=== PATIENT | female | born 1940 | race Caucasian/White ===

== ENCOUNTER → 2017-10-13 | Outpatient (CLI) | payer MEDICARE ==
[~2017-10-13] MED LIST: /WARF25TA OR; ACET500C OR; ACET65TA OR; BUSP5TA PO; CALCCHW12 OR; CARDIA OR; FOLI1TAB4 PO; FOSAMAX PO; FURO20TA PO; GLUC500T3 OR; LOSA100T36 PO; LOVA40TA PO; MULTIVIT OR; MULTIVITAMIN PO; OMEP20TA7 OR; PROP225T PO; TRAM50TA2 OR; TYLE325T5 PO; ULTR50TA PO; VIT D 2000 OR; WARF05TA PO; [UNRECOGNIZED DRUG - OTHER] PO; calcium PO; cartia xt OR; diavan OR; diovan OR; lasix OR; livalo OR; metoprolol PO; neurontin OR; prilosec OR; sucralfate OR
--- NOTE | 2017-10-13 15:56 | REPMRS ---
Patient History The patient states she had a clinical breast exam in 10/19 Patient is postmenopausal, has history of colorectal cancer at age 66, and has history of melanoma. Family history of breast cancer in mother at age 50 or over and ovarian cancer in maternal cousin at age 50 or over. Benign excisional biopsy. Digital Woman Screen Mammo: October 13, 2017 - Exam #: [id number] Bilateral CC and MLO view(s) were taken. Technologist: Rona Burger, Technologist Prior study comparison: April 26, 2016, digital woman screen mammo performed at [facility]. April 27, 2015, digital woman screen mammo performed at [facility] to [facility]. FINDINGS: There are scattered fibroglandular densities. There has been no change in the appearance of the mammogram from the prior studies. There is a mild amount of residual fibroglandular tissue which is fairly symmetric. There is no interval development of dominant mass, architectural distortion, or clustered microcalcification suggestive of malignancy. ASSESSMENT: BI-RADS/ACR category 1 mammogram. Negative. Recommendation Routine screening mammogram in 1 year (for women over age 40). This mammogram was interpreted with the aid of an FDA-approved computer-aided dectection system. Electronically Signed By: Luis Winslow MD 10/13/17 1759
== END ==
LOC: M WHC 14:05
PROVIDERS: ATTEND Nurse Practitioner Family
DX: Z12.31 Encounter for screening mammogram for malignant neoplasm of breast (principal); Z78.0 Asymptomatic menopausal state; Z85.038 Personal history of other malignant neoplasm of large intestine; Z80.3 Family history of malignant neoplasm of breast; Z92.89 Personal history of other medical treatment

== ENCOUNTER → 2018-06-04 | Outpatient (CLI) | payer MEDICARE | LOC: M WHC 10:40 | DX: M81.0 Age-related osteoporosis without current pathological fracture (principal) | CPT/HCPCS: 77080 ==

== ENCOUNTER → 2018-10-16 | Outpatient (CLI) | payer MEDICARE ==
[~2018-10-16] MED LIST changes: +FOLI1TAB11 PO; -FOLI1TAB4 PO; -LOSA100T36 PO; +LOSA100T50 PO
--- NOTE | 2018-10-16 11:09 | REPMRS ---
Patient History The patient states she had a clinical breast exam in 10/2018. Patient is postmenopausal, has history of colorectal cancer at age 66, and has history of melanoma skin cancer. Family history of breast cancer at age 50 or over in mother, ovarian cancer at age 50 or over in maternal cousin, prostate cancer in maternal uncle, prostate cancer in maternal cousin. Benign excisional biopsy. No Hormone Replacement Therapy 3D TOMOSYNTHESIS WAS PERFORMED. Digital Woman Screen Mammo: October 16, 2018 - Exam #: [id number] Bilateral CC and MLO view(s) were taken. Technologist: Ambar Garg, Technologist Prior study comparison: October 13, 2017, digital woman screen mammo performed at [facility]. April 26, 2016, digital woman screen mammo performed at [facility]. FINDINGS: The breast tissue is heterogeneously dense. This may lower the sensitivity of mammography. There has been no change in the appearance of the mammogram from the prior studies. There is a moderate amount of residual fibroglandular tissue which is fairly symmetric. There is no interval development of dominant mass, areas of architectural distortion, or clustered microcalcification typical of malignancy. Assessment: BI-RADS/ACR category 1 mammogram. Negative. Recommendation Routine screening mammogram in 1 year (for women over age 40). This mammogram was interpreted with the aid of an FDA-approved computer-aided dectection system. Electronically Signed By: Luis Winslow MD 10/16/18 [id number]
== END ==
LOC: M WHC 09:14
PROVIDERS: ATTEND Nurse Practitioner Family
DX: Z01.419 Encounter for gynecological examination (general) (routine) without abnormal findings (principal); Z12.31 Encounter for screening mammogram for malignant neoplasm of breast; Z78.0 Asymptomatic menopausal state; Z85.038 Personal history of other malignant neoplasm of large intestine; Z85.820 Personal history of malignant melanoma of skin; Z80.3 Family history of malignant neoplasm of breast; Z86.018 Personal history of other benign neoplasm; N81.10 Cystocele, unspecified; M81.0 Age-related osteoporosis without current pathological fracture; Z92.29 Personal history of other drug therapy
CPT/HCPCS: 77063; 77067; 96372; G0101; J0897

== ENCOUNTER → 2019-10-18 | Outpatient (CLI) | payer MEDICARE ==
[~2019-10-18] MED LIST changes: -/WARF25TA OR; +COUM1TAB18 OR
--- NOTE | 2019-10-18 11:09 | REPMRS ---
Patient History The patient states she had a clinical breast exam in October 2019.Family history of breast cancer at age 50 or over in mother, ovarian cancer at age 50 or over in maternal cousin, prostate cancer in maternal uncle, prostate cancer in maternal cousin. Benign excisional biopsy. No Hormone Replacement Therapy Digital Woman Screen Mammo: October 18, 2019 - Exam #: [id number] Bilateral CC and MLO view(s) were taken. Technologist: Yuli Hammonds, Technologist Prior study comparison: October 16, 2018, bilateral digital woman screen mammo performed at [facility]. October 13, 2017, digital woman screen mammo performed at [facility]. April 26, 2016, digital woman screen mammo performed at [facility]. FINDINGS: There are scattered fibroglandular densities. There has been no change in the appearance of the mammogram from the prior studies. There is a mild amount of scattered fibroglandular density which is fairly symmetric. There is no interval development of dominant mass, architectural distortion, or grouped microcalcification suggestive of malignancy. 3-D tomosynthesis shows no additional findings. Assessment: BI-RADS/ACR category 1 mammogram. Negative Mammogram. Recommendation Routine screening mammogram of both breasts in 1 year (for women over age 40). This patient's Lifetime Breast Cancer Risk is estimated at 5.9 %. This mammogram was interpreted with the aid of an FDA-approved computer-aided dectection system. Electronically Signed By: Jey Fragoso MD 10/18/19 [id number]
== END ==
LOC: M WHC 09:18
PROVIDERS: ATTEND Nurse Practitioner Family
DX: Z12.31 Encounter for screening mammogram for malignant neoplasm of breast (principal); Z80.3 Family history of malignant neoplasm of breast; Z86.018 Personal history of other benign neoplasm; M81.0 Age-related osteoporosis without current pathological fracture
CPT/HCPCS: 77063; 77067; 96372; G0463; J0897

== ENCOUNTER → 2019-11-13 | Outpatient (REF) | payer MEDICARE | LOC: M LAB REF 20:45 | PROVIDERS: ATTEND Physician Assistant Medical | DX: R50.9 Fever, unspecified (principal) ==

== ENCOUNTER → 2020-04-18 | Outpatient (CLI) | payer MEDICARE ==
[2020-04-18 11:38] LABS: BASO % 0.5 % (0.0-1.0); EOS # 0.2 10^3/uL (0.0-0.5); EOS % 4.6 % (0.0-3.0); HEMATOCRIT 39.6 % (36.0-47.0); HEMOGLOBIN 12.5 g/dl (12.0-15.5); LYMPH # 1.6 10^3/uL (1.5-5.0); LYMPH % 38.9 % (24.0-44.0); MEAN CORPUSCULAR HEMOGLOBIN 29.6 pg (27.0-33.0); MEAN CORPUSCULAR HGB CONC 31.6 g/dl (32.0-36.5); MEAN CORPUSCULAR VOLUME 93.8 fl (80.0-96.0); MONO # 0.3 10^3/uL (0.0-0.8); MONO % 7.1 % (0.0-5.0); NEUTROPHILS % 48.7 % (36.0-66.0); PLATELET COUNT, AUTOMATED 145 10^3/uL (150-450); RED BLOOD COUNT 4.22 10^6/uL (4.00-5.40); WHITE BLOOD COUNT 4.1 10^3/uL (4.0-10.0)
[2020-04-18 12:08] LABS: ERYTHROCYTE SEDIMENTATION RATE 37 mm/hr (0-30)
[2020-04-18 13:00] LABS: ALBUMIN 3.8 GM/DL (3.2-5.2); ALT/SGPT 25 U/L (12-78); C REACTIVE PROTEIN QUANTITATIV 0.77 MG/DL (0.00-0.30); CREATININE FOR GFR 0.74 MG/DL (0.55-1.30); GLOMERULAR FILTRATION RATE > 60.0 (>39)
== END ==
LOC: M PLALAB 09:29
PROVIDERS: ATTEND Internal Medicine Rheumatology
DX: M15.4 Erosive (osteo)arthritis (principal); M81.0 Age-related osteoporosis without current pathological fracture; Z79.899 Other long term (current) drug therapy
CPT/HCPCS: 36415; 82040; 82565; 84450; 84460; 85027; 85652; 86140; 96372; J0897

== ENCOUNTER → 2020-11-30 | Outpatient (CLI) | payer MEDICARE ==
--- NOTE | 2020-11-30 12:14 | REPMRS ---
Patient History The patient states she had a clinical breast exam in 2020. Family history of breast cancer at age 50 or over in mother, ovarian cancer at age 50 or over in maternal cousin, prostate cancer in maternal uncle, prostate cancer in maternal cousin. Benign excisional biopsy. No Hormone Replacement Therapy Digital Woman Screen Mammo: November 30, 2020 - Exam #: [id number] Bilateral CC and MLO view(s) were taken. Technologist: Matilda Mullins, Technologist Prior study comparison: October 18, 2019, bilateral digital woman screen mammo performed at [facility]. October 16, 2018, bilateral digital woman screen mammo performed at [facility]. October 13, 2017, digital woman screen mammo performed at [facility]. FINDINGS: There are scattered fibroglandular densities. The Volpara volumetric breast density category is:B. There is a new spiculated appearing density in the left superior and medial mid breast which merits further evaluation. There has been no other change in the appearance of the mammogram from the prior studies. There is a mild amount of scattered fibroglandular density which is fairly symmetric. There is no other interval development of dominant mass, architectural distortion, or grouped microcalcification suggestive of malignancy. 3-D tomosynthesis shows no additional findings. Assessment: BI-RADS/ACR category 0 mammogram, Incomplete: Need additional imaging evaluation and/or prior mammograms for comparison. Recommendation Ultrasound and special view mammogram of the left breast. This patient's [facility] Lifetime Breast Cancer Risk is estimated at 5.2 %. This mammogram was interpreted with the aid of an FDA-approved computer-aided dectection system. Electronically Signed By: Jey Fragoso MD 11/30/20 [id number]
--- NOTE | 2020-11-30 12:46 | DEXAMM ---
INDICATION: M81.0 AGE REL OSTEOPOROSIS W/O FX. COMPARISON: There are multiple prior studies the most recent which is from June 04, 2018. The most remote prior study is from 26 August 2002. TECHNIQUE: Bone density was measured using dual-energy x-ray absorptionmetry (DEXA). FINDINGS: AP SPINE L1-L4 BMD 1.207 g/cm2 Young Adult T-Score -0.1 Age Matched Z-Score 1.7. LT FEMUR, TOTAL BMD 0.888 g/cm2 Young Adult T-Score -0.9 Age Matched Z-Score 1.0. LT NECK BMD 0.842 g/cm2 Young Adult T-Score -1.4 Age Matched Z-Score 0.7. RT FEMUR, TOTAL BMD 0.947 g/cm2 Young Adult T-Score -0.5 Age Matched Z-Score 1.4. RT NECK BMD 0.733 g/cm2 Young Adult T-Score -2.2 Age Matched Z-Score -0.1. IMPRESSION: There is normal bone density of the spine. There is low bone density of the left hip. There is low bone density of the right hip. The density of the spine has increased 30.6% since the initial exam on August 26, 2002. The density of the spine increased 6.6% since most recent exam on June 04, 2018. The density of the left hip has decreased 0.8% since initial exam on August 26, 2002. The density of the left hip has increased 0.8% since most recent exam on June 04, 2018. The density of the right hip has increased 5.0% since the initial exam on August 26, 2002. The density of the right hip has increased 1.7% since the most recent exam on June 04, 2018. FOLLOW-UP: Recommendation for the next bone density exam: 2 years. <Electronically signed by Jey Fragoso > 11/30/20 [id number]
== END ==
LOC: M WHC 10:31
PROVIDERS: ATTEND Nurse Practitioner Family
DX: Z01.419 Encounter for gynecological examination (general) (routine) without abnormal findings (principal); Z12.31 Encounter for screening mammogram for malignant neoplasm of breast; M81.0 Age-related osteoporosis without current pathological fracture; Z80.3 Family history of malignant neoplasm of breast; Z86.018 Personal history of other benign neoplasm; N63.25 Unspecified lump in the left breast, overlapping quadrants
CPT/HCPCS: 13132; 17311; 77063; 77067; 77080; 96372; G0101; J0897

== ENCOUNTER → 2020-12-08 | Outpatient (CLI) | payer MEDICARE ==
--- NOTE | 2020-12-08 12:32 | REP ---
INDICATION: ADDITIONAL VIEWS LT BREAST. Recent screening mammography was BI-RADS category 0 ft because of a possible spiculated area in the left breast. Diagnostic imaging was recommended. COMPARISON: Comparison mammography 30 November 2020, 18 October 2019, and 16 October 2018. TECHNIQUE: Magnified focal spot-compression CC, mL, and MLO views of the left breast is are obtained. Targeted left breast sonography is carried out. This mammogram was interpreted with the aid of an FDA-approved computer-aided detection system. FINDINGS: Diagnostic mammographic images confirm the presence of a 7 mm spiculated nodule in the superomedial quadrant of the left breast middle 3rd. Scattered fibroglandular elements are seen along with some vascular calcification. No other suspicious mammographic finding. Targeted sonography imaging of the left breast demonstrates a hypoechoic irregularly shaped 5 x 5 x 4 mm nodule with slightly irregular margins at the 11 o'clock position, 6 cm from the nipple. This is felt to correspond with the mammographic density. On some images, it appears taller than wide and displays acoustic shadowing. It is considered suspicious sonographically as well as mammographically.. : IMPRESSION: BIRADS/ACR category 4 suspicious left breast mammographic and sonographic findings. Histologic sampling is recommended. This patient's Tyrer-Cuzick lifetime breast cancer risk assessment score is 5.2%. RECOMMENDATION: Ultrasound-guided needle biopsy left breast lesion with marker clip placement and post clip placement left breast mammography recommended.. The patient letter being requested is M4. <Electronically signed by Jey Fragoso > 12/08/20 [id number]
== END ==
LOC: M WHC 09:32
PROVIDERS: ATTEND Nurse Practitioner Family
DX: Z12.31 Encounter for screening mammogram for malignant neoplasm of breast (principal); N63.21 Unspecified lump in the left breast, upper outer quadrant

== ENCOUNTER → 2020-12-18 | Outpatient (CLI) | payer MEDICARE | LOC: M PLALAB 13:30 | PROVIDERS: ATTEND Surgery | DX: Z13.79 Encounter for other screening for genetic and chromosomal anomalies (principal); Z85.828 Personal history of other malignant neoplasm of skin ==

== ENCOUNTER → 2020-12-27 | Outpatient (CLI) | payer MEDICARE ==
[~2020-12-27] MED LIST changes: +ELIQ2.5T PO; +LOTR5CAP2 PO; +PLAQ200T4 PO; +PROL60SO SC
[2020-12-27 11:01] VITALS: BP 130/78
--- NOTE | 2020-12-27 13:13 | REP ---
INDICATION: R92.8 ABN LT MAMMO, POST US GUIDED BIOPSY. COMPARISON: Comparison left breast mammography 30 November 2020 and 08 December 2020. TECHNIQUE: Craniocaudal and mediolateral views of the left breast are obtained post biopsy. This mammogram was interpreted with the aid of an FDA-approved computer-aided detection system. FINDINGS: Scattered fibroglandular elements are seen. The needle biopsy marker clip is seen in the superomedial aspect the left breast where previous mammography showed a spiculated lesion. Post biopsy skin edema obscures the lesion but the marker clip is in good position. . : IMPRESSION: Needle biopsy marker clip in good position where prior mammography showed the spiculated lesion in the superomedial left breast.. RECOMMENDATION: Pending biopsy result.. <Electronically signed by Jey Fragoso > 12/27/20 [id number]
--- NOTE | 2020-12-27 13:15 | REP ---
INDICATION: R92.8 ABN LT MAMMO,US GUIDED BIOPSY. COMPARISON: Comparison sonography December 08, 2020.. TECHNIQUE: Sonographic guidance. FINDINGS: Sonographic guidance is provided to Dr. Gale who performed ultrasound-guided needle biopsy procedure left breast lesion with marker clip placement. IMPRESSION: Ultrasound guidance. <Electronically signed by Jey Fragoso > 12/27/20 0194
--- NOTE | 2020-12-30 15:07 | ROOPDOC ---
[facility] Report Of Operation Report of Operation DATE OF PROCEDURE: 12/27/20 DIAGNOSIS: left breast suspicious lesion PROCEDURE: Ultrasound guided biopsy of left breast suspicious lesion with clip placement SURGEON: Benjamin Mathis BLOOD LOSS: minimal COMPLICATIONS: none Lidocaine 1% LOT [id number] Expiration 02/2024 Sodium Bicarbonate 4% LOT [id number] Expiration 02/2021 Hydromark clip LOT [id number] Expiration 08/2023 SHAPE: 3 Bx device: BARD [id number] x10 cm LOT [id number] Expiration 09/2023 Informed consent was obtained. The most common risk and possible complications including bleeding, hematoma, bruising, infection, injury to surrounding structures were explained to the patient and the patient expressed understanding. Patient was placed on the bed in the supine position. Appropriate time out was done stating patients name, date of , and the procedure to be performed. The left breast was prepped and draped in the usual fashion. The ultrasound was used to confirm the location of the lesion in the left breast at 11:00 5 centimeters from the nipple. Plain Lidocaine 1% and 4% sodium bicarbonate 10:2 mix was used to anesthetize the skin, the biopsy site and tissues along the anticipated biopsy tract. Small skin incision was made with blade number 11. BARD Marquee 14G cannula with introducer ([id number]) was inserted through the incision and advanced under the ultrasound guidance to position immediately adjacent to the lesion. Next, the introducer was removed and BARD Marquee 14G biopsy device was places in the cannula. Pre-biopsy imaging, and post-biopsy imaging were captured. Five good core biopsies were taken at various levels of the lesion. Specimen was placed in formaldehyde, labeled with appropriate biopsy site and patients name, and sent to pathology for evaluation. Next, the biopsy device was withdrawn and a clip introducer was inserted into the biopsy site via the cannula. The SHAPE 3 Hydromark clip was deployed under sonographic guidance. Post-clip placement image was captured. Manual pressure over the biopsy cavity and tract was held after the clip introducer was withdrawn. No bleeding was noted upon removal of the pressure. Post-biopsy mammogram of the left breast was obtained and showed clip in expected position. Postprocedural dressing was placed. Patient tolerated procedure well. Discharge instructions were discussed with the patient and the patient expressed understanding. BENJAMIN MATHISb 27, 2021 15:07
== END ==
LOC: M WHCPRO 09:43
PROVIDERS: ATTEND Surgery
DX: C50.912 Malignant neoplasm of unspecified site of left female breast (principal)

== ENCOUNTER → 2021-01-03 | Outpatient (REF) | payer MEDICARE ==
[2021-01-03 16:08] LABS: BLOOD UREA NITROGEN 12 MG/DL (7-18); CALCIUM LEVEL 9.7 MG/DL (8.8-10.2); CARBON DIOXIDE LEVEL 26 MEQ/L (21-32); CHLORIDE LEVEL 113 MEQ/L (98-107); CREATININE FOR GFR 0.83 MG/DL (0.55-1.30); GLOMERULAR FILTRATION RATE > 60.0 (>39); GLUCOSE, FASTING 98 MG/DL (70-100); POTASSIUM SERUM 4.2 MEQ/L (3.5-5.1); SODIUM LEVEL 143 MEQ/L (136-145)
== END ==
LOC: M PLALAB 14:03
PROVIDERS: ATTEND Surgery
DX: C50.912 Malignant neoplasm of unspecified site of left female breast (principal)

== ENCOUNTER → 2021-01-05 | Outpatient (CLI) | payer MEDICARE ==
[~2021-01-05] MED LIST changes: +PROHANCE 279.3MG/ML 15ML VIAL As Ordered ONE
--- NOTE | 2021-01-08 09:02 | REP ---
INDICATION: IDC LEFT BREAST. COMPARISON: Comparison screening mammography 30 November 2020, diagnostic mammography and targeted ultrasound December 08, 2020, ultrasound-guided needle biopsy images of the left breast from 07 December 2020 as well as marker clip placement mammography 27 December 2020. TECHNIQUE: Three Kathya MRI imaging was performed with a dedicated breast coil. Axial, coronal, and sagittal T1 and T2 weighted scans were obtained with and without fat saturation in the usual fashion. The study includes dynamically acquired post gadolinium-enhanced imaging with image subtraction. Maximum intensity projection and multi planar reformation imaging is included as well. This study is interpreted with the aid of TidyClubD, an FDA approved computer aided detection (CAD) software program, on a dedicated breast MRI workstation. The gadolinium enhancement dose is 15 mL of intravenous ProHance. FINDINGS: There is a mild to moderate amount of fibroglandular tissue bilaterally corresponding with the mammographic pattern. There is mild background parenchymal enhancement. There is no evidence of axillary lymphadenopathy or significant breast cystic change. High-resolution pre and post-contrast T1 and T2 weighted scans show a 7 mm spiculated area adjacent to the HydroMARK biopsy clip in the superomedial quadrant of the left breast corresponding to the biopsy-proven invasive ductal carcinoma. This demonstrates minimal enhancement and washout kinetics. There is no other suspicious abnormality in either breast. Dynamically acquired sequential postcontrast images show no other suspicious area of enhancement and washout.. IMPRESSION: BI-RADS category 6 known left breast malignancy. Marker clip immediately adjacent to the 7 mm spiculated lesion. No evidence of adenopathy or additional suspicious abnormality in either breast.. <Electronically signed by Jey Fragoso > 01/08/21 [id number]
== END ==
LOC: M RAD 14:29
PROVIDERS: ATTEND Surgery
DX: C50.912 Malignant neoplasm of unspecified site of left female breast (principal)
CPT/HCPCS: A9576; C8908

== ENCOUNTER → 2021-03-21 | Outpatient (CLI) | payer MEDICARE ==
[~2021-03-21] MED LIST changes: +COVI100V IM; -PROHANCE 279.3MG/ML 15ML VIAL As Ordered ONE
--- NOTE | 2021-03-21 14:11 | RADONC.CN ---
Radiation Oncology Hx/Consult Radiation Oncology Consult Date of Service: March 21, 2021 Pt Identifier Dipika Ni is a 80 year old female with screening mammogram detected left breast cancer pT1cN0(sn)M0 ER/AR+ HER2- grade 2. She is s/p lumpectomy and SLNB with Dr. Richardson on 03/02/21 and is seen today for consideration of adjuvant RT. Diagnosis/Treatment History Oncologic History 11/30/20 Mammogram with left superomedial abnormality 12/08/20 US with 12 o'clock lesion left breast 12/27/20 Biopsy showing IDC ER/AR+ HER2- Grade 2 01/05/21 MRI negative for regional disease 03/02/21 Lumpectomy and SLNB pT1cN0(sn)M0 margins negative Breast history: 1st @ 23 Menses @ 15 Menopause @ 52 No OCP No HRT/IVF Interval History Here with her son, has tenderness in the left breast, some bruising remaining. Some pain in the left axilla, not bothersome, not taking anything for this. Has no change in left arm diameter, has no impaired ROM. Is under treatment with hydroxychloroquine for 'joint condition'. Past Medical History: PAF Arthritis Colon cancer 2003 Melanoma Osteoporosis GERD Past Surgical History: Venral hernia repair Subtotal colectomy 2004 Mohs surgery for melanoma Rotator cuff repain TKA left and right Family History: Mother breast cancer Maternal cousin ovarian cancer Social History: Never smoker Never drinker Allergies / Meds Allergies: Coded Allergies: MS - Codeine (Verified Allergy, Unknown, HEADACHE,RASH, 02/08/13) MS - Celecoxib (Unverified Adverse Reaction, Unknown, SKIN FLUSHING, 02/08/13) MS - Sulfa Drugs (Unverified Adverse Reaction, Unknown, SKIN FLUSHING, 02/08/13) MS - Sulfa Drugs Cross Reactors (Unverified Adverse Reaction, Unknown, SKIN FLUSHING, 02/08/13) Home Meds Reported Medications Covid-19 Vacc,Mrna(Moderna)/Pf (Moderna Covid19 Vacc(Unapprov)) 100 Mcg/0.5 Ml Vial, 100 MCG IM, VIAL 03/21/21 Amlodipine Besylate/Benazepril (Lotrel 5-10 mg Capsule) 1 Each Capsule, 1 CAP PO DAILY for 30 Days, #30 CAP 12/27/20 Hydroxychloroquine Sulfate (Plaquenil) 200 Mg Tablet, 200 MG PO, TAB 12/27/20 Denosumab Injection (Prolia) 60 Mg/1 Ml Syringe, 1 SYRINGE SC ONCE for 1 Day, #1 ML 12/27/20 Apixaban (Eliquis) 2.5 Mg Tablet, 1 TAB PO BID for 30 Days, #60 TAB 12/27/20 Lovastatin (Lovastatin) 40 Mg Tab, 40 MG PO DAILY, TAB 08/21/16 Losartan Potassium (Losartan Potassium) 100 Mg Tab, 100 MG PO DAILY, TAB 08/21/16 Folic Acid (Folic Acid) 1 Mg Tab, 1 MG PO DAILY, TAB 08/21/16 Propafenone HCl (Propafenone HCl) 225 Mg Tab, 225 MG PO BID, TAB 08/21/16 Buspirone HCl (Buspirone HCl) 5 Mg Tab, 5 MG PO BID, #60 TAB 08/21/16 Acetaminophen (TYLENOL) 325 Mg Tab, 650 MG PO Q4HP PRN 07/16/12 Omeprazole (Omeprazole) 20 Mg Tab, 20 MG OR BID 07/01/12 Multivitamins (Multivitamin) 1 Tab Tab, 1 TAB OR DAILY 01/18/11 Review of Systems General: Reports: Normal Appetite Constitutional: Denies: Chills, Fever, Night Sweats Eyes: Denies: Pain, Vision change HEENT: Denies: Head Aches, Dysphagia, Sore Throat Skin: Denies: Rash, Lesions, Bruising Pulmonary: Denies: Dyspnea, Cough Cardiovascular: Denies: Chest Pain, Palpitations, Edema Breast: Reports: Breast Skin Changes (Bruising left); Denies: New Breast Lumps / Masses, Nipple Retraction, Nipple Discharge Gastrointestinal: Denies: Nausea, Vomiting, Abdominal Pain, Diarrhea Genitourinary: Denies: Dysuria, Frequency, Incontinence Hematologic: Denies: Bruising, Petecchia, Enlarged Lymph Nodes Musculoskeletal: Denies: Neck pain, Back pain Neurological: Denies: Weakness, Numbness, Incoordination Psych: Reports: Mood Normal; Denies: Memory Issues, Thoughts of Self Harm Vital Signs Ht 61" Wt 183 lbs BMI 34 T 96.5 P 75 RR 16 BP 136/69 O2 96% Pain 0 Fatigue 0 General Exam: Positive: Alert, Cooperative, No Acute Distress Eye Exam: Positive: PERRLA, EOMI ENT EXAM: Positive: Mucous membr. moist/pink, Pharynx Normal Neck Exam: Negative: Thyromegaly, Lymphadenopathy Chest Exam: Positive: Normal air movement; Negative: Rales, Rhonchi, Wheezing Heart Exam: Positive: Rate Normal, Regular Rhythm Breast Exam: Positive: Symmetric Bilaterally, Skin Changes (There is bruising and dependent edema in the left inferior breast, There is a palpable surgical bed superomedial to the nipple. Healing central breast and left axillary incisions.); Negative: Lumps or Masses, Nipple Retraction, Nipple Discharge Abdomen Exam: Positive: Soft; Negative: Tenderness, Mass Extremity Exam: Negative: Edema, Tenderness Skin Exam: Positive: Nl turgor and temperature; Negative: Rash Neuro Exam: Positive: Normal Gait, Normal Speech, Cranial Nerves 3-12 NL Psych Exam: Positive: Mental status NL, Mood NL, Memory Intact Diagnostic and Laboratory Diagnostic Review Radiologic images, relevant labs and pathology reports were personally reviewed and discussed with Ms. Ni. Assessment and Plan Impression Ms. Ni is a 80 year old female with a history of screening mammogram detected left breast cancer pT1cN0(sn)M0 ER/AR+ HER2- grade 2. She is s/p lumpectomy and SLNB with Dr. Richardson on 03/02/21 and is seen today for consideration of adjuvant RT. Stage Stage IA left upper breast pT1cN0(sn)M0 ER/AR+ HER2- Grade 2 Performance Status ECOG 0 Plan We had an extensive discussion with Ms. Ni regarding the diagnosis at hand and available therapeutic options. She has a completely excised, early stage, hormone receptor positive lesion. Given these features and her age she would qualify for omission of adjuvant RT per CALGB 9343. I discussed this with her and her son in detail. The one caveat I explained is that this recommendation is contingent upon her willingness to take an AI. She said she has no reservations regarding this, and she has already seen Dr. Deleon who will be prescribing. She and her son asked many well-informed questions, about breast cancer in general and radiation therapy for breast cancer specifically which I answered to the best of my ability. They were both appreciative of the information and satisfied that she may safely forego RT. I will follow up with her as needed. I provided my contact information should questions arise. Recommendations Omit adjuvant RT based on CALGB 9343 paradigm Follow up as needed AI per Dr. Deleon Billing Statement Total time of [37] minutes was spent preparing for the visit [3], obtaining HPI [5], examining the patient [3], reviewing diagnostic tests [3], discussing management options [16], coordinating care [0], and writing this note [7]. TERESA PASTRANA MD March 21, 2021 14:11
== END ==
LOC: M ONCR 10:58
PROVIDERS: ATTEND General Practice
DX: C50.912 Malignant neoplasm of unspecified site of left female breast (principal)

== ENCOUNTER → 2021-09-17 | Outpatient (CLI) | payer MEDICARE ==
[~2021-09-17] MED LIST changes: +ACET325T43 PO; +CALC1TAB42 PO; +LETR2.5T2 PO; +MULTTAB61 PO; +OMEP-218 PO; +OMEP10CASR PO
--- NOTE | 2021-09-17 10:06 | REP ---
INDICATION: LEFT DIAG 6 MN FOLLOW UP S/P LUMPECTOMY. COMPARISON: Bilateral screening mammogram, 11/30/2020 and left mammogram, 12/08/2020 and 12/27/2020. TECHNIQUE: 2D and 3D cc and MLO views of the left breast were obtained. FINDINGS: The Volpara volumetric breast density pattern is b, there are scattered areas of fibroglandular density. In the area of the breast biopsy there is an area of architectural distortion and trabecular thickening. No evidence of residual mass or fluid collection.. IMPRESSION: BIRADS/ACR : Category 3: Probably benign. The patient letter being requested is M3. RECOMMENDATION: Repeat six-month follow-up mammographic evaluation of the left breast. <Electronically signed by Amando Jurado > 09/17/21 1002
== END ==
LOC: M WHC 09:00
PROVIDERS: ATTEND Physician Assistant
DX: Z98.890 Other specified postprocedural states (principal)
CPT/HCPCS: 77065; G0279

== ENCOUNTER → 2022-09-19 | Outpatient (CLI) | payer MEDICARE, BC ==
[~2022-09-19] MED LIST changes: +LOSA100T45 PO; -LOSA100T50 PO; +LOSA50TA28 PO; +OMEP-173 PO; -OMEP-218 PO
== END ==
LOC: M WHC 13:19
PROVIDERS: ATTEND Nurse Practitioner
DX: Z12.31 Encounter for screening mammogram for malignant neoplasm of breast (principal); Z85.3 Personal history of malignant neoplasm of breast

== ENCOUNTER → 2022-11-07 | Outpatient (CLI) | payer MEDICARE, BC | LOC: M WHC 11:05 | PROVIDERS: ATTEND Nurse Practitioner | DX: Z79.899 Other long term (current) drug therapy (principal); M81.0 Age-related osteoporosis without current pathological fracture ==

== ENCOUNTER 2023-06-30 14:20 | Emergency (ER) | payer MEDICARE, BC ==
[~2023-06-30] VITALS: Ht 160 cm; Wt 84.0 kg
[~2023-06-30 14:20] MED LIST changes: +CALC-176 PO; -LOSA100T45 PO; +LOSA100T46 PO; +LOVA40TA
[2023-06-30] MEDS ORDERED: ELIQ5TAB PO (14:37)
[2023-06-30] MEDS ORDERED: OMEP40CA5 (14:37)
[2023-06-30] MEDS ORDERED: AMLO1TAB24 PO (14:37)
[2023-06-30] MEDS ORDERED: ACETAMINOPHEN 325 MG TAB PO ONE (16:15)
[2023-06-30] MEDS ORDERED: CHLORASEPTIC SPRAY MT ONE (16:15)
[2023-06-30 18:04] VITALS: BP 176/88; TEMP 99.2; O2SAT 96
== END 2023-06-30 18:14 | disposition home or self-care (01) ==
LOC: M ED 14:20
DX: U07.1 COVID-19 (principal); I10 Essential (primary) hypertension; K21.9 Gastro-esophageal reflux disease without esophagitis; C18.9 Malignant neoplasm of colon, unspecified; C50.919 Malignant neoplasm of unspecified site of unspecified female breast; Z86.79 Personal history of other diseases of the circulatory system; Z79.01 Long term (current) use of anticoagulants; Z88.2 Allergy status to sulfonamides; Z88.5 Allergy status to narcotic agent; Z79.810 Long term (current) use of selective estrogen receptor modulators (SERMs); Z79.811 Long term (current) use of aromatase inhibitors; Z79.899 Other long term (current) drug therapy

== ENCOUNTER → 2023-12-31 | Outpatient (CLI) | payer MEDICARE, BC ==
[~2023-12-31] MED LIST changes: +AMLO1TAB24 PO; +ELIQ5TAB PO; +OMEP40CA5
== END ==
LOC: M WHC 11:23
PROVIDERS: ATTEND Internal Medicine Medical Oncology
DX: N64.89 Other specified disorders of breast (principal); C50.919 Malignant neoplasm of unspecified site of unspecified female breast
CPT/HCPCS: 77066; G0279

== ENCOUNTER → 2024-09-17 | Outpatient (REF) | payer MEDICARE, OTHER ==
[2024-09-17 17:33] LABS: HEMATOCRIT 46.2 % (36.0-47.0); HEMOGLOBIN 14.8 g/dl (12.0-15.5); MEAN CORPUSCULAR HEMOGLOBIN 30.6 pg (27.0-33.0); MEAN CORPUSCULAR VOLUME 95.7 fl (80.0-96.0); PLATELET COUNT, AUTOMATED 205 10^3/uL (150-450); RED BLOOD COUNT 4.83 10^6/uL (4.00-5.40); WHITE BLOOD COUNT 5.3 10^3/uL (4.0-10.0)
[2024-09-17 17:38] LABS: ALKALINE PHOSPHATASE 78 U/L (35-104); ALT/SGPT 16 U/L (7.0-40); AST/SGOT 12 U/L (<34); BILIRUBIN,TOTAL 0.3 MG/DL (0.3-1.2); BLOOD UREA NITROGEN 10 MG/DL (9-23); CALCIUM LEVEL 11.1 MG/DL (8.3-10.6); CARBON DIOXIDE LEVEL 31 MMOL/L (20-31); CHLORIDE LEVEL 109 MMOL/L (98-107); CHOLESTEROL LEVEL 188 MG/DL (<200); CHOLESTEROL RISK RATIO 4.21 (<5); CREATININE FOR GFR 0.82 MG/DL (0.55-1.30); FREE T4 1.13 NG/DL (0.89-1.76); GLOMERULAR FILTRATION RATE > 60.0 (>32); GLUCOSE, FASTING 98 MG/DL (74-106); HDL CHOLESTEROL 44.6 MG/DL (>40); LDL CHOLESTEROL 114.4 MG/DL (<100); MAGNESIUM LEVEL 2.4 MG/DL (1.8-2.4); NON-HDL-C 143.4 MG/DL; POTASSIUM SERUM 4.5 MMOL/L (3.5-5.1); SODIUM LEVEL 143 MMOL/L (136-145); THYROID STIMULATING HORMONE 4.201 uIU/ML (0.55-4.78); TOTAL PROTEIN 7.1 G/DL (5.7-8.2); TRIGLYCERIDES LEVEL 145 MG/DL (<150)
[2024-09-17 17:39] LABS: FOLATE > 24.00 NG/ML (>5.4)
[2024-09-17 17:40] LABS: TOTAL 25(OH) VITAMIN D 58.8 NG/ML (20.0-100.0); VITAMIN B12 LEVEL 848 PG/ML (211-911)
[2024-09-17 18:21] LABS: HEMOGLOBIN A1c 5.5 % (4.0-6.0)
== END ==
LOC: M SFHCADAM 13:16
PROVIDERS: ATTEND Family Medicine
DX: R53.83 Other fatigue (principal); Z13.1 Encounter for screening for diabetes mellitus; M81.0 Age-related osteoporosis without current pathological fracture; I48.91 Unspecified atrial fibrillation; E78.2 Mixed hyperlipidemia

== ENCOUNTER → 2024-12-21 | Outpatient (REF) | payer MEDICARE, OTHER ==
[2024-12-21 18:37] LABS: BLOOD UREA NITROGEN 8 MG/DL (9-23); CALCIUM LEVEL 10.4 MG/DL (8.3-10.6); CARBON DIOXIDE LEVEL 30 MMOL/L (20-31); CHLORIDE LEVEL 107 MMOL/L (98-107); CREATININE FOR GFR 0.74 MG/DL (0.55-1.30); GLOMERULAR FILTRATION RATE > 60.0 (>32); GLUCOSE, FASTING 93 MG/DL (74-106); PHOSPHORUS LEVEL 3.9 MG/DL (2.4-5.1); POTASSIUM SERUM 4.1 MMOL/L (3.5-5.1); PTH INTACT 94.1 PG/ML (18.5-88.0); SODIUM LEVEL 147 MMOL/L (136-145)
== END ==
LOC: M SFHCADAM 12:16
PROVIDERS: ATTEND Family Medicine
DX: E83.52 Hypercalcemia (principal)

== ENCOUNTER → 2025-01-03 | Outpatient (CLI) | payer MEDICARE | LOC: M WHC 10:33 | PROVIDERS: ATTEND Dietitian, Registered | DX: Z12.31 Encounter for screening mammogram for malignant neoplasm of breast (principal); M81.0 Age-related osteoporosis without current pathological fracture; C50.919 Malignant neoplasm of unspecified site of unspecified female breast; R92.323 Mammographic fibroglandular density, bilateral breasts; M85.89 Other specified disorders of bone density and structure, multiple sites | CPT/HCPCS: 77066; 77080; G0279 ==

== ENCOUNTER → 2025-06-30 | Outpatient (REF) | payer MEDICARE, OTHER ==
[~2025-06-30] MED LIST changes: +DENO60SY2 SC; -PROL60SO SC; -PROP225T PO; +PROP225T4 PO
[2025-06-30 17:10] LABS: PLATELET COUNT, AUTOMATED 150 10^3/uL (150-450)
[2025-06-30 17:25] LABS: ESTIMATED AVERAGE GLUCOSE 111.0 MG/DL (60-110)
[2025-06-30 17:54] LABS: FREE T4 1.1 NG/DL (0.89-1.76)
[2025-06-30 17:56] LABS: ALT/SGPT 17.0 U/L (7.0-40); AST/SGOT 18.0 U/L (<34); CALCIUM LEVEL 10.4 MG/DL (8.3-10.6); CARBON DIOXIDE LEVEL 29.0 MMOL/L (20-31); CHLORIDE LEVEL 108.0 MMOL/L (98-107); CHOLESTEROL LEVEL 177.0 MG/DL (<200); CHOLESTEROL RISK RATIO 4.5 (<5); CREATININE FOR GFR 0.81 MG/DL (0.55-1.30); GLOMERULAR FILTRATION RATE 72.0 (>32); LDL CHOLESTEROL 103.7 MG/DL (<100); MAGNESIUM LEVEL 2.3 MG/DL (1.8-2.4); NON-HDL-C 137.7 MG/DL; POTASSIUM SERUM 4.3 MMOL/L (3.5-5.1); SODIUM LEVEL 146.0 MMOL/L (136-145); TRIGLYCERIDES LEVEL 170.0 MG/DL (<150)
[2025-06-30 17:57] LABS: TOTAL 25(OH) VITAMIN D 61.7 NG/ML (20.0-100.0)
[2025-06-30 18:08] LABS: PTH INTACT 86.6 PG/ML (18.5-88.0)
== END ==
LOC: M SFHCADAM 11:05
PROVIDERS: ATTEND Family Medicine
DX: R53.82 Chronic fatigue, unspecified (principal); E83.52 Hypercalcemia; M81.0 Age-related osteoporosis without current pathological fracture; I48.91 Unspecified atrial fibrillation; E78.2 Mixed hyperlipidemia; Z13.1 Encounter for screening for diabetes mellitus